=== PATIENT | male | born 1975 | race Caucasian/White ===

== ENCOUNTER 2018-07-11 13:18 | Emergency (ER) | payer BC, SELFPAY ==
[2018-07-11 13:22] VITALS: BP 107/68; PULSE 77; RESP 16; TEMP 36.7; O2SAT 95
--- NOTE | 2018-07-11 14:32 | W.ED.GENAD ---
Discharge Plan Disposition Patient Disposition: HOME Condition: Improving Discharge Details Chief Complaint: Laceration Clinical Impression: Forearm laceration Primary Care Provider: Reg Lopez ED Provider: Omar Cabrera Home Meds and New Rx's Prescriptions: No Action No Known Home Meds RF: 0 Discharge Instructions Instructions: Laceration (ED) Additional Instructions: Watch for any signs of infection and return immediately if these occur. Otherwise continue to keep wound clean and dry and keep your dressing in place for 24-48 hours. After that you may apply dressing as needed return to the emergency department in 10 days for suture removal Referrals: [facility] [Outside] (Return to the emergency department 10 days for suture. Return immediately for any signs of infection) Discharge Data Discharge Date/Time-TO BE ENTERED AT DEPARTURE: 07/11/18 14:40 Medical Decision Making MDM Narrative Medical decision making narrative: Patient presents to the emergency department with right forearm laceration. Patient has a laceration into the adipose tissue approximately 4.5 cm in length. No dysfunction of the upper extremity. Verbal consent was obtained for wound closure. Skin was cleansed with Betadine and anesthetized with 1% lidocaine and epinephrine and 6 mL's were instilled locally. Wound was visualized to base in bloodless field and no evidence of foreign body was noted no deep structure injury noted. Wound was thoroughly irrigated with copious amounts of saline and closed with 4-0 Ethilon and 5 sutures were used to close the wound. Patient tolerated procedure well. Patient's tetanus was not up-to-date and so patient was given up-to-date. Patient encouraged to watch for any signs of infection return immediately if these occur otherwise return in 10 days for suture removal. HPI - General Adult General Mode of arrival: ambulatory. Date/Time Provider Initiated Documentation: 07/11/18 13:38. Limitations to Documentation: no limitations. Information obtained by: patient. History of Present Illness 42 year old M presents to the emergency department with the chief complaint of Right arm laceration, described as mild, with intensity rated at 2. Quality is described as aching, and is localized to the right and upper extremity. Patient reports no radiation. Patient started experiencing this minute(s) (30) and it has been constant. No relieving factors improve symptom(s), No exacerbating factors reported . Patient notes no other symptoms.. Patient did receive the following treatments prior to arrival, none Related Data Home Medications Medication Instructions Recorded Confirmed Unknown [No Known Home Meds] 07/11/18 07/11/18 Allergies Allergy/AdvReac Type Severity Reaction Status Date / Time No Known Allergies Allergy Unverified 07/11/18 13:27 General Stated Complaint: Laceration PUJA: 4 Review of Systems Review of Systems All systems reviewed & are unremarkable except as noted in HPI and below Constitutional Denies weakness Cardiovascular Denies chest pain and Denies syncope Musculoskeletal Reports as per HPI, Denies numbness and Denies tingling Neurologic Denies syncope, Denies numbness, Denies tingling, Denies paresthesias and Denies weakness PFSH Social History Smoking/Tobacco Use Status: Never Exam Const General: cooperative, healthy appearing and no acute distress Orientation: alert and oriented x3 Limitations: mental status not altered Resp Effort & Inspection: normal respiratory effort and able to speak in complete sentences Cardio Rhythm: regular rhythm Neuro General: alert, awake, oriented x3 and normal light touch, pain and propioception Cognition: normal cognition Extrem Right upper extremity: full ROM, normal capillary refill, elbow/forearm Details: normal ROM, laceration (mid forearm 4.5cm ) and distal pulses intact; no tenderness, wrist Details: normal to inspection and hand Details: normal to inspection, neuromotor exam normal and neurosensory exam normal Course Vital Signs Temperature 36.7 C 07/11/18 13:22 Pulse 77 07/11/18 13:22 Respiratory Rate 16 07/11/18 13:22 Blood Pressure 107/68 07/11/18 13:22 Pulse Oximetry 95 07/11/18 13:22 Temperature 36.7 C 07/11/18 13:22 Pulse 77 07/11/18 13:22 Respiratory Rate 16 07/11/18 13:22 Blood Pressure 107/68 07/11/18 13:22 Pulse Oximetry 95 07/11/18 13:22 Procedures Laceration Laceration 1: Site: upper extremity Side (If applicable): right Size (cm): 4.5 Description: linear and clean Depth: simple, single layer Local Anesthetic: Lidocaine 1% and with Epi Amount of anesthesia used (mL): 6 Pre-repair: wound explored, irrigated extensively and deep structures intact Skin layer closed with: nylon Size (cm): 4-0 Number of sutures: 5 Technique: simple, interrupted
--- NOTE | 2018-07-11 14:36 | ED.GENADUL_ITS ---
Discharge Plan Disposition Patient Disposition: HOME Condition: Improving Discharge Details Chief Complaint: Laceration Clinical Impression: Forearm laceration Primary Care Provider: Reg Lopez ED Provider: Omar Cabrera Home Meds and New Rx's Prescriptions: No Action No Known Home Meds RF: 0 Discharge Instructions Instructions: Laceration (ED) Additional Instructions: Watch for any signs of infection and return immediately if these occur. Otherwise continue to keep wound clean and dry and keep your dressing in place for 24-48 hours. After that you may apply dressing as needed return to the emergency department in 10 days for suture removal Referrals: [facility] [Outside] (Return to the emergency department 10 days for suture. Return immediately for any signs of infection) Discharge Data Discharge Date/Time-TO BE ENTERED AT DEPARTURE: 07/11/18 14:40 Medical Decision Making MDM Narrative Medical decision making narrative: Patient presents to the emergency department with right forearm laceration. Patient has a laceration into the adipose tissue approximately 4.5 cm in length. No dysfunction of the upper extremity. Verbal consent was obtained for wound closure. Skin was cleansed with Betadine and anesthetized with 1% lidocaine and epinephrine and 6 mL's were instilled locally. Wound was visualized to base in bloodless field and no evidence of foreign body was noted no deep structure injury noted. Wound was thoroughly irrigated with copious amounts of saline and closed with 4-0 Ethilon and 5 sutures were used to close the wound. Patient tolerated procedure well. Patient's tetanus was not up-to-date and so patient was given up-to-date. Patient encouraged to watch for any signs of infection return immediately if these occur otherwise return in 10 days for suture removal. HPI - General Adult General Mode of arrival: ambulatory . Date/Time Provider Initiated Documentation: 07/11/18 13:38 . Limitations to Documentation: no limitations . Information obtained by: patient . History of Present Illness 42 year old M presents to the emergency department with the chief complaint of Right arm laceration, described as mild, with intensity rated at 2. Quality is described as aching, and is localized to the right and upper extremity. Patient reports no radiation. Patient started experiencing this minute(s) (30) and it has been constant. No relieving factors improve symptom(s), No exacerbating factors reported . Patient notes no other symptoms.. Patient did receive the following treatments prior to arrival, none Related Data Home Medications Medication Instructions Recorded Confirmed Unknown [No Known Home Meds] 07/11/18 07/11/18 Allergies Allergy/AdvReac Type Severity Reaction Status Date / Time No Known Allergies Allergy Unverified 07/11/18 13:27 General Stated Complaint: Laceration PUJA: 4 Review of Systems Review of Systems All systems reviewed & are unremarkable except as noted in HPI and below Constitutional Denies weakness Cardiovascular Denies chest pain and Denies syncope Musculoskeletal Reports as per HPI, Denies numbness and Denies tingling Neurologic Denies syncope, Denies numbness, Denies tingling, Denies paresthesias and Denies weakness PFSH Social History Smoking/Tobacco Use Status: Never Exam Const General: cooperative, healthy appearing and no acute distress Orientation: alert and oriented x3 Limitations: mental status not altered Resp Effort & Inspection: normal respiratory effort and able to speak in complete sentences Cardio Rhythm: regular rhythm Neuro General: alert, awake, oriented x3 and normal light touch, pain and propioception Cognition: normal cognition Extrem Right upper extremity: full ROM, normal capillary refill, elbow/forearm Details : normal ROM, laceration (mid forearm 4.5cm ) and distal pulses intact; no tenderness, wrist Details: normal to inspection and hand Details: normal to inspection, neuromotor exam normal and neurosensory exam normal Course Vital Signs Temperature 36.7 C 07/11/18 13:22 Pulse 77 07/11/18 13:22 Respiratory Rate 16 07/11/18 13:22 Blood Pressure 107/68 07/11/18 13:22 Pulse Oximetry 95 07/11/18 13:22 Temperature 36.7 C 07/11/18 13:22 Pulse 77 07/11/18 13:22 Respiratory Rate 16 07/11/18 13:22 Blood Pressure 107/68 07/11/18 13:22 Pulse Oximetry 95 07/11/18 13:22 Procedures Laceration Laceration 1: Site: upper extremity Side (If applicable): right Size (cm): 4.5 Description: linear and clean Depth: simple, single layer Local Anesthetic: Lidocaine 1% and with Epi Amount of anesthesia used (mL): 6 Pre-repair: wound explored, irrigated extensively and deep structures intact Skin layer closed with: nylon Size (cm): 4-0 Number of sutures: 5 Technique: simple, interrupted
[2018-07-11 14:41] VITALS: BP 133/80; PULSE 77; RESP 18; TEMP 36.8; O2SAT 99
== END 2018-07-11 14:40 | disposition home or self-care (01) ==
PROVIDERS: Emergency Provider Nurse Practitioner Family; PCP Physician Assistant
DX: S51.811A Laceration without foreign body of right forearm, initial encounter (principal); W01.198A Fall on same level from slipping, tripping and stumbling with subsequent striking against other object, initial encounter
CPT/HCPCS: 12002; 90471

== ENCOUNTER 2020-06-17 11:39 | Outpatient (REF) | payer BC, SELFPAY ==
[2020-06-17 19:00] LABS: Calculated LDL 187 mg/dL (<100); Cholesterol 239 mg/dL (<200); HDL Cholesterol 42 mg/dL (40-60); Hemoglobin A1C 5.2 % (3.8-5.6); Triglyceride 54 mg/dL (<150)
== END 2020-06-17 11:59 ==
LOC: NCHCN 11:39
PROVIDERS: PCP Physician Assistant; Visit Provider Family Medicine
DX: Z00.00 Encounter for general adult medical examination without abnormal findings (principal); Z13.220 Encounter for screening for lipoid disorders; Z13.1 Encounter for screening for diabetes mellitus
CPT/HCPCS: 80061; 83036

== ENCOUNTER 2021-07-01 16:36 | Outpatient (REF) | payer BC, SELFPAY ==
[2021-07-01 14:14] LABS: Calculated LDL 165 mg/dL (<100); Cholesterol 226 mg/dL (<200); HDL Cholesterol 45 mg/dL (40-60); Triglyceride 80 mg/dL (<150)
[2021-07-04 09:13] LABS: Hepatitis C Ab w Rflx HCV PCR Negative (Negative)
== END 2021-07-01 16:37 | disposition home or self-care (01) ==
LOC: NCHCN 16:36
PROVIDERS: PCP Physician Assistant; Visit Provider Family Medicine
DX: E78.5 Hyperlipidemia, unspecified (principal); Z00.00 Encounter for general adult medical examination without abnormal findings
CPT/HCPCS: 80061; 86803

== ENCOUNTER 2021-10-28 23:40 | Emergency (ER) | payer BC, SELFPAY ==
--- NOTE | 2021-10-28 23:30 | RT.EKG_ITS ---
APPROVED REPORT Exam: Resting ECG Reason for Exam: chest pain Patient Location: E HR:72 bpm ECG Measurements Heart Rate 72 AXIS NM 157 P 61 QRSd 95 QRS -49 QT 382 T 7 QTc 419 Conclusion Sinus rhythm...normal P axis, V-rate 60- 99 Inferior infarct, old...Q >35mS, II III aVF
[2021-10-28 23:45] VITALS: BP 141/84; PULSE 82; RESP 18; TEMP 36.7; O2SAT 98
[2021-10-28 23:49] VITALS: BP 141/84; PULSE 72; PULSE 74; RESP 17; O2SAT 97
--- NOTE | 2021-10-28 23:49 | W.ED.GENAD ---
Discharge Plan Disposition Patient Disposition: HOME Condition: Stable Discharge Details Chief Complaint: Chest Pain Clinical Impression: Chest pain, Elevated serum creatinine Primary Care Provider: Lei Rosales ED Provider: Christian José Home Meds and New Rx's Prescriptions: No Action No Known Home Meds RF: 0 Discharge Instructions Additional Instructions: Your troponin was normal and your xray did not show concerning findings. Your creatinine which measures your kidney function was mildly elevated this could be pain from your chest wall and you can take tylenol and ibuprofen as needed, follow dosing instructions on packaging if you feel more ill, have severe worsening pain or difficulty breathing return to the emergency department follow up with your primary care provider this week and have your kidney function rechecked as well. Medical Decision Making 46 year old male with no chronic medical problems, denies history of smoking or family history of heart disease comes in with 2 days of dull left sided chest pain and today moved to the upper back. He states it feels more uncomfortable when he moves his arm otherwise denies pain with exertion, diaphoresis, n/v. He arrives stable speaking in full sentences. He has clear lungs, no murmurs, normal peripheral pulses, no rashes on the chest or back and soft nontender abdomen. Heart score is 2, will obtain troponin. No tearing back pain and normal vascular exam so doubt PE. No hypoxia, tachycardia, pleuritic pain and no evidence of dvt on exam so doubt PE. pt's labs show normal troponin and creatinine of 1.7, last in the system was 2015 and was normal then, could indicate some dehydration. Patient stable, xray also unremarkable. Given over 2 days of symptoms do not feel repeat troponin indicated. He is stable for d/c and appropriate for outpatient management given low heart score. Advised to f/u with pcp this week and have kidney function rechecked with his pcp, return precautions given Differential Diagnosis Differential Diagnosis: nstemi, chest wall pain, pericarditis Imaging Data Radiologic Study: Attestation: I personally reviewed and interpreted this imaging study as follows: Imaging: X-Ray Radiologist's impression: PROCEDURE INFORMATION: Exam: XR Chest Exam date and time: 10/29/2021 00:09 Age: 46 years old Clinical indication: Other: Cp TECHNIQUE: Imaging protocol: XR of the chest. Views: 2 views. COMPARISON: No relevant prior studies available. FINDINGS: Lungs: No airspace consolidation. No significant interstitial disease for the degree of inflation. Pleural spaces: No pleural effusion. No pneumothorax. Heart/Mediastinum: No cardiomegaly. Bones/joints: No acute fracture. IMPRESSION: No acute cardiopulmonary pathology. Lab Data Lab results reviewed: Yes I reviewed the patient's lab results. ECG Data Attestation: I personally reviewed and interpreted this ECG (s) as follows: Prior ECG tracings: not available for review Interpretation: sinus rhythm, rate of 73, no acute st t wave ischemic findings HPI General Mode of arrival: ambulatory. Date/Time Provider Initiated Documentation: 10/28/21 23:41. Limitations to Documentation: no limitations. Information obtained by: patient. History of Present Illness 46 year old M presents to the emergency department with the chief complaint of chest pain, described as moderate, Quality is described as aching, and is localized to the chest. Patient reports radiation to back. Patient started experiencing this day(s) (2) and it has been constant. No relieving factors improve symptom(s), No exacerbating factors reported . Patient notes no other symptoms.. Patient did receive the following treatments prior to arrival, none Related Data Home Medications Medication Instructions Recorded Confirmed Unknown [No Known Home Meds] 07/11/18 10/28/21 Allergies Allergy/AdvReac Type Severity Reaction Status Date / Time No Known Allergies Allergy Unverified 07/11/18 13:27 General Stated Complaint: Chest Pain PUJA: 2 Review of Systems All systems reviewed & are unremarkable except as noted in HPI and below Constitutional Constitutional: Denies chills, Denies fever(s) and Denies weakness Cardiovascular Cardiovascular: Denies dyspnea Respiratory Respiratory: Denies cough and Denies dyspnea Gastrointestinal Gastrointestinal: Denies abdominal pain, Denies nausea and Denies vomiting Musculoskeletal Musculoskeletal: Denies joint swelling Neurologic Neurologic: Denies weakness PFSH All Active Problems (Updated 10/29/21 @ 00:59 by Christian José MD) Chest pain (Acute) Elevated serum creatinine (Acute) Social History Smoking/Tobacco Use Status: Never Smoking risk assessment performed?: Yes Alcohol Intake: current Alcohol Intake frequency: holidays/special occasions only Alcohol type: beer Drug use: Never Do you feel safe at home: Yes Do you feel safe in your relationship?: Yes Exam Const General: no acute distress Orientation: alert [facility] Head: normal to inspection Ears: external ears normal General nose exam: external nose normal Mouth: moist mucous membranes Eyes General: appearance normal, both eyes and all related structures Neck Neck: normal visual inspection Resp Effort & Inspection: normal respiratory effort and able to speak in complete sentences Cardio Rate: regular rate GI Palpation: soft and nontender Skin General skin exam: no rashes or lesions noted Neuro General: patient alert and patient oriented x3 Extrem General: normal to inspection Psych Mental Status: mental status grossly normal Course Vital Signs Vital signs: Vital Signs Temperature 36.7 C 10/28/21 23:45 Pulse 82 10/28/21 23:45 Respiratory Rate 18 10/28/21 23:45 Blood Pressure 141/84 H 10/28/21 23:45 Pulse Oximetry 98 10/28/21 23:45 Temperature 36.7 C 10/28/21 23:45 Pulse 82 10/28/21 23:45 Respiratory Rate 18 10/28/21 23:45 Blood Pressure 141/84 H 10/28/21 23:45 Pulse Oximetry 98 10/28/21 23:45 Pain Level 5 10/28/21 23:45
[2021-10-28 23:50] VITALS: PULSE 73; RESP 14; O2SAT 98
[2021-10-29] VITALS (15 sets, daily range): BP systolic 97–130; BP diastolic 74–90; PULSE 62–82; RESP 13–23; O2SAT 95–98
--- NOTE | 2021-10-29 | DI.RAD_ITS ---
Exam(s) XR CHEST 2V PA LATERAL EXAM: XR CHEST 2V PA LATERAL CLINICAL HISTORY: chest pain TECHNIQUE: 2D digital imaging was performed. COMPARISON: CR CHEST 2 VIEWS PA,LAT from 04/22/2012 CR CHEST 2 VIEWS PA,LAT from 04/22/2012 FINDINGS: The heart is not enlarged. The lungs are clear and well expanded. No pleural effusion seen. Mediastin al contours appear intact. IMPRESSION: Normal chest. RADIATION DOSE DELIVERED: Total DLP
[2021-10-29 00:05] LABS: Abs Immature Grans 0.02 10^3/uL (0.0-0.06); Absolute Basophil Count 0.03 10^3/uL (0.0-0.2); Absolute Eosinophil Count 0.05 10^3/uL (0.0-0.7); Absolute Lymphocyte Count 1.19 10^3/uL (1.2-3.4); Absolute Monocyte Count 0.75 10^3/uL (0.1-0.8); Absolute Neutrophil Count 1.53 10^3/uL (1.2-6.7); Basophils % 0.8; Eosinophils % 1.4; HCT 43.9 % (40.0-50.0); HGB 14.5 g/dL (13.5-17.5); Immature Grans % 0.6; Lymphocytes % 33.3; MCV 90.9 fL (80-95); MPV 9.1 fL (8.0-11.0); Neutrophils % 42.9; Nucleated RBC 0 %; Platelet Count 168 10^3/uL (130-400); RBC 4.83 10^6/uL (4.36-5.78); RDW 12.5 % (11.8-14.1); RDW-SD 41.4 fL; WBC 3.57 10^3/uL (4.4-10.8)
[2021-10-29 00:19] LABS: Lipase 94 U/L (73-393)
[2021-10-29 00:24] LABS: ALT 36 U/L (16-63); AST 24 U/L (15-37); Albumin 3.8 g/dL (3.4-5.0); Alkaline Phosphatase 72 U/L (46-116); Anion Gap 3.5 mmol/L (3-11); BUN 19 mg/dL (7-18); Bilirubin, Total 0.4 mg/dL (0.2-1.0); CO2 31.5 mmol/L (21.0-32.0); CREATININE 1.7 mg/dL (0.70-1.30); Calcium 8.3 mg/dL (8.5-10.1); Chloride 105 mmol/L (98-107); Estimated GFR 43.61 (mL/min/1.73m2); Glucose 95 mg/dL (74-106); Magnesium 2.2 mg/dL (1.8-2.4); Potassium 3.7 mmol/L (3.5-5.1); Sodium 140 mmol/L (136-145); Total Protein 7.1 g/dL (6.4-8.2)
[2021-10-29 00:25] LABS: Troponin I < 50 ng/L (<or=60)
[2021-10-29] MEDS: Aspirin 81 MG CHEW 162 MG CH (00:29)
--- NOTE | 2021-10-29 00:44 | DI.VRAD_ITS ---
PROCEDURE INFORMATION: Exam: XR Chest Exam date and time: 10/29/2021 00:09 Age: 46 years old Clinical indication: Other: Cp TECHNIQUE: Imaging protocol: XR of the chest. Views: 2 views. COMPARISON: No relevant prior studies available. FINDINGS: Lungs: No airspace consolidation. No significant interstitial disease for the degree of inflation. Pleural spaces: No pleural effusion. No pneumothorax. Heart/Mediastinum: No cardiomegaly. Bones/joints: No acute fracture. IMPRESSION: No acute cardiopulmonary pathology. Dictated and Authenticated by: Carrol Patel MD. Ordering:LONNIE Gonzales MD
[2021-10-29] MEDS: Normal Saline 1,000 ML 1000 ML IV (00:49)
[2021-10-31 11:56] LABS: COVID-19 RT-PCR UVMMC Result Positive (Negative)
--- NOTE | 2021-10-31 13:07 | ED.GENADUL_ITS ---
Discharge Plan Disposition Patient Disposition: HOME Condition: Stable Discharge Details Clinical Impression: Chest pain, Elevated serum creatinine Primary Care Provider: Lei Rosales ED Provider: Christian José Home Meds and New Rx's Prescriptions: No Action No Known Home Meds RF: 0 Discharge Instructions Additional Instructions: Your troponin was normal and your xray did not show concerning findings. Your creatinine which measures your kidney function was mildly elevated this could be pain from your chest wall and you can take tylenol and ibuprofen as needed, follow dosing instructions on packaging if you feel more ill, have severe worsening pain or difficulty breathing return to the emergency department follow up with your primary care provider this week and have your kidney function rechecked as well. Discharge Data Discharge Date/Time-TO BE ENTERED AT DEPARTURE: 10/29/21 01:20 Medical Decision Making I was made aware that Covid test resulted as positive by the lab. I contacted the patient by phone on 10/31/2020 to relay positive Covid test results to him. Patient does qualify for oral antivirals based on BMI, and agreed to take this medication. Confirmed confirmed that patient was within 5 days of onset of symptoms. Prescription called in to [facility] for Paxlovid. I discussed with patient return to emergency department precautions, home care, isolation. Patient verbalized understanding. All questions were answered. HPI General Mode of arrival: ambulatory . Date/Time Provider Initiated Documentation: 10/28/21 23:41 . Limitations to Documentation: no limitations . Information obtained by: patient . History of Present Illness Quality is described as aching, and is localized to the chest. No relieving factors improve symptom(s), No exacerbating factors reported . Patient notes no other symptoms.. Patient did receive the following treatments prior to arrival, none Related Data Home Medications Medication Instructions Recorded Confirmed Unknown [No Known Home Meds] 07/11/18 10/28/21 Allergies Allergy/AdvReac Type Severity Reaction Status Date / Time No Known Allergies Allergy Unverified 07/11/18 13:27 General Stated Complaint: Chest Pain PUJA: 2 PFSH All Active Problems (Updated 10/29/21 @ 00:59 by Christian José MD) Chest pain (Acute) Elevated serum creatinine (Acute) Social History Smoking/Tobacco Use Status: Never Smoking risk assessment performed?: Yes Alcohol Intake: current Alcohol Intake frequency: holidays/special occasions only Alcohol type: beer Drug use: Never Do you feel safe at home: Yes Do you feel safe in your relationship?: Yes Course Vital Signs Vital signs: Vital Signs Temperature 36.7 C 10/28/21 23:45 Pulse 82 10/28/21 23:45 Respiratory Rate 18 10/28/21 23:45 Blood Pressure 141/84 H 10/28/21 23:45 Pulse Oximetry 98 10/28/21 23:45 Temperature 36.7 C 10/28/21 23:45 Pulse 68 10/29/21 01:00 Pulse 65 10/29/21 01:10 Respiratory Rate 17 10/29/21 01:10 Respiratory Effort Non-Labored 10/28/21 23:49 Respiratory Depth Normal 10/28/21 23:49 Respiratory Pattern Normal 10/28/21 23:49 Blood Pressure 130/79 10/29/21 01:00 Blood Pressure Mean 91 10/29/21 01:00 Pulse Oximetry 97 10/29/21 01:10 Pain Level 2 10/29/21 01:20 Lab/Test Results Lab/Test Results: Laboratory Tests Range/Units 10/28/21 10/28/21 10/28/21 23:55 23:55 23:55 WBC (4.4-10.8) 10^3/uL 3.57 L RBC (4.36-5.78) 10^6/uL 4.83 Hgb (13.5-17.5) g/dL 14.5 Hct (40.0-50.0) % 43.9 MCV (80-95) fL 90.9 MCH (27.0-33.0) pg 30.0 MCHC (32.0-36.0) % 33.0 RDW (11.8-14.1) % 12.5 Plt Count (130-400) 10^3/uL 168 MPV (8.0-11.0) fL 9.1 Immature Gran % 0.6 Neutrophils % 42.9 Lymphocytes % 33.3 Monocytes % 21.0 Eosinophils % 1.4 Basophils % 0.8 Nucleated RBC % % 0 Absolute Neutrophils (1.2-6.7) 10^3/uL 1.53 Absolute Lymphocytes (1.2-3.4) 10^3/uL 1.19 L Absolute Monocytes (0.1-0.8) 10^3/uL 0.75 Absolute Eosinophils (0.0-0.7) 10^3/uL 0.05 Absolute Basophils (0.0-0.2) 10^3/uL 0.03 Sodium (136-145) mmol/L 140 Potassium (3.5-5.1) mmol/L 3.7 Chloride (98-107) mmol/L 105 Carbon Dioxide (21.0-32.0) mmol/L 31.5 Anion Gap (3-11) mmol/L 3.5 BUN (7-18) mg/dL 19 H Creatinine (0.70-1.30) mg/dL 1.7 H Estimated GFR/1.73 m2 (mL/min/1.73m2) 43.61 Glucose (74-106) mg/dL 95 Calcium (8.5-10.1) mg/dL 8.3 L Magnesium (1.8-2.4) mg/dL 2.2 Total Bilirubin (0.2-1.0) mg/dL 0.4 AST (15-37) U/L 24 ALT (16-63) U/L 36 Alkaline Phosphatase (46-116) U/L 72 Troponin I (<or=60) ng/L < 50 Total Protein (6.4-8.2) g/dL 7.1 Albumin (3.4-5.0) g/dL 3.8 Lipase (73-393) U/L 94 SARS-CoV-2 (PCR) (Negative) Nasopharyn COVID-19 PCR Ref Test Perform Site Range/Units 10/29/21 10/29/21 01:00 02:42 WBC (4.4-10.8) 10^3/uL RBC (4.36-5.78) 10^6/uL Hgb (13.5-17.5) g/dL Hct (40.0-50.0) % MCV (80-95) fL MCH (27.0-33.0) pg MCHC (32.0-36.0) % RDW (11.8-14.1) % Plt Count (130-400) 10^3/uL MPV (8.0-11.0) fL Immature Gran % Neutrophils % Lymphocytes % Monocytes % Eosinophils % Basophils % Nucleated RBC % % Absolute Neutrophils (1.2-6.7) 10^3/uL Absolute Lymphocytes (1.2-3.4) 10^3/uL Absolute Monocytes (0.1-0.8) 10^3/uL Absolute Eosinophils (0.0-0.7) 10^3/uL Absolute Basophils (0.0-0.2) 10^3/uL Sodium (136-145) mmol/L Potassium (3.5-5.1) mmol/L Chloride (98-107) mmol/L Carbon Dioxide (21.0-32.0) mmol/L Anion Gap (3-11) mmol/L BUN (7-18) mg/dL Creatinine (0.70-1.30) mg/dL Estimated GFR/1.73 m2 (mL/min/1.73m2) Glucose (74-106) mg/dL Calcium (8.5-10.1) mg/dL Magnesium (1.8-2.4) mg/dL Total Bilirubin (0.2-1.0) mg/dL AST (15-37) U/L ALT (16-63) U/L Alkaline Phosphatase (46-116) U/L Troponin I (<or=60) ng/L Cancelled Total Protein (6.4-8.2) g/dL Albumin (3.4-5.0) g/dL Lipase (73-393) U/L SARS-CoV-2 (PCR) (Negative) Positive A* Nasopharyn COVID-19 PCR Not Applicable Ref Test Perform Site [facility]
--- NOTE | 2021-11-01 11:00 | NUR.NOTE ---
Nursing Note: Patient called this morning asking that a copy of his COVID result be mailed to him. I have done this. Rosana Perez
== END 2021-10-29 01:20 | disposition home or self-care (01) ==
PROVIDERS: Emergency Provider Emergency Medicine; PCP Family Medicine
DX: U07.1 COVID-19 (principal); R07.9 Chest pain, unspecified; R94.4 Abnormal results of kidney function studies
CPT/HCPCS: 80053; 83690; 93005; 96360; 99284; U0003; 71046; 83735; 84484; 85025; 93010

== ENCOUNTER 2021-12-09 12:45 | Outpatient (REF) | payer BC, SELFPAY ==
[2021-12-09 15:18] LABS: Anion Gap 8.5 mmol/L (3-11); BUN 21 mg/dL (7-18); CO2 27.5 mmol/L (21.0-32.0); Calcium 8.8 mg/dL (8.5-10.1); Chloride 105 mmol/L (98-107); Glucose 82 mg/dL (74-106); Sodium 141 mmol/L (136-145)
== END 2021-12-09 12:46 | disposition home or self-care (01) ==
LOC: NCHCN 12:45
PROVIDERS: PCP Family Medicine; Visit Provider Family Medicine
DX: N28.9 Disorder of kidney and ureter, unspecified (principal)
CPT/HCPCS: 80048

== ENCOUNTER 2023-10-18 14:14 | Outpatient (REF) | payer BC, SELFPAY ==
[2023-10-18 15:43] LABS: Abs Immature Grans 0.01 10^3/uL (0.0-0.06); Absolute Basophil Count 0.04 10^3/uL (0.0-0.2); Absolute Eosinophil Count 0.12 10^3/uL (0.0-0.7); Absolute Lymphocyte Count 1.57 10^3/uL (1.2-3.4); Absolute Neutrophil Count 3.61 10^3/uL (1.2-6.7); Basophils % 0.7; Eosinophils % 2.1; HCT 44.4 % (40.0-50.0); HGB 15.3 g/dL (13.5-17.5); Immature Grans % 0.2; Lymphocytes % 26.8; MCH 30.6 pg (27.0-33.0); MCHC 34.5 % (32.0-36.0); MCV 89 fL (80-95); MPV 9.9 fL (8.0-11.0); Monocytes % 8.5; Neutrophils % 61.7; Platelet Count 187 10^3/uL (130-400); RDW 12.6 % (11.8-14.1); RDW-SD 40.9 fL; WBC 5.85 10^3/uL (4.4-10.8)
[2023-10-18 16:30] LABS: CREATININE 1.1 mg/dL (0.70-1.30); Calculated LDL 172 mg/dL (<100); Cholesterol 245 mg/dL (<200); Estimated GFR 82.81 (mL/min/1.73m2); HDL Cholesterol 61 mg/dL (40-60); TSH 1.15 uIU/mL (0.36-3.74); Triglyceride 62 mg/dL (<150); Vitamin B12 393 pg/mL (193-986)
== END 2023-10-18 14:15 | disposition home or self-care (01) ==
LOC: NCHCN 14:14
PROVIDERS: PCP Family Medicine; Visit Provider Family Medicine
DX: Z00.00 Encounter for general adult medical examination without abnormal findings (principal); R41.3 Other amnesia; E78.5 Hyperlipidemia, unspecified
CPT/HCPCS: 80061; 82565; 82607; 84443; 85025

== ENCOUNTER 2024-05-15 17:17 | Outpatient (REF) | payer BC, SELFPAY ==
--- NOTE | 2024-05-15 12:00 | SKI_PTH ---
PATIENT: Charlie Marie LOC: [facility] U#:[id number] AGE/SX: 48/M ROOM: RE05/15/[address]: Maeve Marie : 1975 BED: DIS: 05/15/2024 SPEC #: [id number] RECD: 05/15/24 17:43 STATUS: RAHEEL REAusten #: [id number] LIANNA: 05/15/24 12:[address]: Maeve Marie DEPT: Surgical Specimen RECD BY: Qing Dumas ENTERED: 05/15/24 17:43 SP TYPE: FRANCHESCA ECHOLS DR: Lei Rosales Tissues: 1 - SKIN BIOPSY(SHAVE/PUNCH) Procedures: SKIN LEVEL 4 Comments: [id number]
== END 2024-05-15 17:18 | disposition home or self-care (01) ==
LOC: LBN 17:17
PROVIDERS: PCP Family Medicine; Visit Provider Nurse Practitioner Family
DX: L98.8 Other specified disorders of the skin and subcutaneous tissue (principal); B07.8 Other viral warts
CPT/HCPCS: 88305